=== PATIENT | male | born 1945 | race Caucasian/White ===

== ENCOUNTER 2018-04-24 07:57 | Day surgery (SDC) | payer BC, MEDICARE ==
[~2018-04-24] VITALS: Ht 182.9 cm; Wt 97.5 kg
[~2018-04-24 07:57] MED LIST: LEVO-T88 MCG PO; SIMVASTATIN20 MG PO
[2018-04-24 10:48] VITALS: BP 114/69
== END 2018-04-24 11:05 | disposition home or self-care (01) | DRG 379 ==
LOC: ENDO 07:57
PROVIDERS: ATTEND Surgery
PROC: 0DJD8ZZ Inspection of Lower Intestinal Tract, Via Natural or Artificial Opening Endoscopic (ICD-10-PCS; principal; 2018-04-24)
DX: K62.5 Hemorrhage of anus and rectum (principal); K62.89 Other specified diseases of anus and rectum; E03.9 Hypothyroidism, unspecified; E78.5 Hyperlipidemia, unspecified